=== PATIENT | female | born 1955 | race Caucasian/White ===

== ENCOUNTER 2019-05-08 13:55 | Emergency (ER) | payer BC, OTHER ==
[~2019-05-08] VITALS: Ht 170.2 cm; Wt 77.1 kg
[2019-05-08 15:45] VITALS: BP 141/50
== END 2019-05-08 15:49 | disposition home or self-care (01) ==
LOC: ER 13:55
DX: S01.81XA Laceration without foreign body of other part of head, initial encounter (principal); M25.562 Pain in left knee; R07.89 Other chest pain; I10 Essential (primary) hypertension; E03.9 Hypothyroidism, unspecified; Z90.49 Acquired absence of other specified parts of digestive tract; Z87.891 Personal history of nicotine dependence; W18.30XA Fall on same level, unspecified, initial encounter; Y93.K1 Activity, walking an animal; Y92.89 Other specified places as the place of occurrence of the external cause; Y99.8 Other external cause status